=== PATIENT | male | born 1990 | race Caucasian/White ===

== ENCOUNTER 2017-07-12 07:04 | Emergency (ER) | payer SELFPAY ==
[2017-07-12 07:12] VITALS: TEMP 98.5; BMI 27.5
[2017-07-12] MEDS ORDERED: Sodium Chloride 0.9% 1,000 ML IV STA (07:32)
--- NOTE | 2017-07-12 07:38 | ED PDOC ---
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 you didn't want sexual disease testing or treatment. 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 [employer] Time/Duration: Other (2 days) Symptom Course: Improving Quality: Aching Context: Sitting Past Medical History - Provider Review Nursing Documentation Reviewed: Yes - Travel History Have you recently traveled outside [place] w/in the past 3 mons?: Yes If Yes, travel location?: [facility] - Psychiatric Hx Substance Use: No Family/Social History - Physician Review Nursing Documentation Reviewed: Yes Family/Social History: No Known Family HX Smoking Status: Light Smoker < 10 Cigarettes Daily Hx Alcohol Use: No Hx Substance Use: No Allergies/Home Meds Allergies/Adverse Reactions: Allergies No Known Allergies Allergy (Verified 07/12/17 07:24) Home Medications: Home Meds Medication Instructions Recorded Confirmed No Known Home Med 07/12/17 07/12/17 Review of Systems - Review of Systems Constitutional: Normal Eyes: Normal ENT: Normal Respiratory: Normal Cardiovascular: Normal Gastrointestinal: Abdominal Pain Genitourinary Male: Hematuria Musculoskeletal: Normal Skin: Normal Neurological: Normal Endocrine: Normal Hemo/Lymphatic: Normal Psychiatric: Normal Physical Exam Vital Signs Reviewed: Yes Vital Signs Temp Pulse Resp BP Pulse Ox 07/12/17 12:10 58 L 17 119/62 96 07/12/17 10:28 58 L 17 126/60 98 07/12/17 10:26 50 L 18 126/60 99 07/12/17 07:10 98.5 F 71 18 128/83 100 Temperature: Afebrile Blood Pressure: Hypertensive Pulse: Regular Respiratory Rate: Normal Appearance: Positive for: Well-Appearing, Non-Toxic, Comfortable Pain Distress: None Mental Status: Positive for: Alert and Oriented X 3 - Systems Exam Head: Present: Atraumatic, Normocephalic Pupils: Present: PERRL Extroacular Muscles: Present: EOMI Conjunctiva: Present: Normal Ears: Present: Normal Pharnyx: Present: Normal Nose (External): Present: Atraumatic Nose (Internal): Present: Normal Inspection Neck: Present: Normal Range of Motion Respiratory/Chest: Present: Clear to Auscultation, Good Air Exchange Cardiovascular: Present: Regular Rate and Rhythm Abdomen: No: Tenderness, Distention, Normal Bowel Sounds, Peritoneal Signs, Rebound, Guarding, McBurney's Point Tender, Rovsing's Sign Present, Hernias, Feeding Tubes, Ostomy Tubes, Mass/Organomegaly, Scars, Other Upper Extremity: Present: Normal Inspection Lower Extremity: Present: Normal Inspection Neurological: Present: GCS=15, CN II-XII Intact, Speech Normal, Motor Func Grossly Intact Skin: Present: Warm, Normal Color Psychiatric: Present: Alert, Oriented x 3, Normal Insight, Normal Concentration Medical Decision Making ED Course and Treatment: 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 you didn't want sexual disease testing or treatment. You were otherwise breathing easily, pink lips, smiling talking with your colleague, good strength/sensation, alert/oriented, walking easily, clear lungs, no abdomen tenderness, no fever temp 98.5, stable heart rate 71, stable breathing rate 18, excellent oxygen level 100% room air, elevated blood pressure 128/83 which we recommend repeat in 2-3 days primary care office to determine further treatment, you have blood tests no infection count 9.9, stable blood level hemoglobin 17/platelets 224, stable chemistry, mildly low potassium 3.5 which was supplemented, urine test no acute sign of infection, radiology no acute findings, normal appendix, intravenous fluids done in the ED with improvement and you refused pain medication and stated no pain, counselled to stop smoking and thus discharged home with colleague. 1. Recommend tylenol or motrin as directed for pain. 2. Recommend follow-up primary care 2-3 days to review symptoms, referral to urology clinic for enhancement of kidneys and cysts to ensure no cancer development and surgery clinic for lymph nodes to ensure no cancer developement. 4. If any worsening pain, fever, chills, nausea, vomiting, difficulty breathing, numbness, loss of limb function, pain with urination or any medical condition then return to the ED. 07/12/17 07:40 07/12/17 07:41 CT abdomen: Creator : Harriet Bond MD FINDINGS: LOWER THORAX: There is dependent atelectasis in the lung bases. LIVER: Normal in size and appearance. No gross lesion or ductal dilatation. GALLBLADDER AND BILE DUCTS: The gallbladder is contracted. PANCREAS: Normal in size and appearance. No gross lesion or ductal dilatation. SPLEEN: Normal in size and appearance. ADRENALS: No discrete nodule. KIDNEYS AND URETERS: The kidneys are normal in size and there is homogeneous enhancement without solid mass or hydronephrosis. There a few small subcentimeter simple cortical cysts in the kidneys. VASCULATURE: No aortic aneurysm. BOWEL: There are fluid filled normal caliber small bowel loops. There is no bowel dilatation or obstruction. There is moderate amount of stool scattered throughout the colon. APPENDIX: Normal appendix. PERITONEUM: No free fluid. No free air. Within normal limits LYMPH NODES: There are several prominent subcentimeter lymph nodes in the right lower quadrant. BLADDER: Normal in appearance. REPRODUCTIVE:The prostate gland is normal in size and appearance. BONES: No acute fracture. Within normal limits for the patient's age. OTHER FINDINGS: None. IMPRESSION: 1. No acute abdominal or pelvic abnormality. Specifically, no CT evidence for acute appendicitis. 2. Several prominent subcentimeter right lower quadrant mesenteric lymph nodes which may represent nonspecific mesenteric lymphadenitis. 07/12/17 12:21 - Lab Interpretations Lab Results: 07/12/17 07:20 07/12/17 07:20 Lab Results 07/12/17 08:53: Urine Color Yellow, Urine Appearance Clear, Urine pH 6.0, Ur Specific [place] 1.010, Urine Protein Negative, Urine Glucose (UA) Negative, Urine Ketones Negative, Urine Blood Moderate H, Urine Nitrate Negative, Urine Bilirubin Negative, Urine Urobilinogen 0.2, Ur Leukocyte Esterase Negative, Urine RBC 2 - 5, Urine WBC 0 - 2, Ur Epithelial Cells 0 - 2, Urine Bacteria Neg 07/12/17 07:20: Sodium 141, Potassium 3.5 L, Chloride 103, Carbon Dioxide 27, Anion Gap 15, BUN 14, Creatinine 1.0, Est GFR ( Amer) > 60, Est GFR (Non- Af Amer) > 60, Random Glucose 101, Calcium 9.4, Total Bilirubin 0.6, AST 35, ALT 27, Alkaline Phosphatase 57, Total Protein 7.5, Albumin 4.3, Globulin 3.2, Albumin/Globulin Ratio 1.3, Lipase 190 07/12/17 07:20: PT 12.4, INR 1.08, APTT 32.7 07/12/17 07:20: WBC 9.9, RBC 5.50, Hgb 17.3, Hct 50.0, MCV 90.9, MCH 31.5, MCHC 34.6, RDW 12.6, Plt Count 224, MPV 9.3, Gran % 66.3, Lymph % (Auto) 25.0, [place] % (Auto) 6.9 H, Eos % (Auto) 1.6, Baso % (Auto) 0.2, Gran # 6.58 H, Lymph # 2.5 , [place] # 0.7 H, Eos # 0.2, Baso # 0.02 I have reviewed the lab results: Yes - RAD Interpretation Radiology Orders: 07/12/17 08:48 ABDOMEN & PELVIS [ABD & PELVIS IV CONTRAST ONLY] [CT] Stat Investment Strategist: Radiologist - Medication Orders Current Medication Orders: Discontinued Medications Sodium Chloride (Sodium Chloride 0.9%) 1,000 mls @ 1,000 mls/hr IV .Q1H STA Stop: 07/12/17 08:31 Last Admin: 07/12/17 07:49 Dose: 1,000 mls/hr eMAR Start Stop Document 07/12/17 07:49 MR (Rec: 07/12/17 07:49 MR [id number]) Intravenous Solution Start Date 07/12/17 Start Time 07:49 End Date 07/12/17 End time 08:49 Total Infusion Time 60 Potassium Chloride (K-Dur 20 Meq Er Tab) 40 meq PO STAT STA Stop: 07/12/17 08:49 Last Admin: 07/12/17 09:20 Dose: 40 meq - Scribe Statement The provider has reviewed the documentation as recorded by the Awais Cristobal Provider Awais Attestation: All medical record entries made by the Awais were at my direction and personally dictated by me. I have reviewed the chart and agree that the record accurately reflects my personal performance of the history, physical exam, medical decision making, and the department course for this patient. I have also personally directed, reviewed, and agree with the discharge instructions and disposition. Disposition/Present on Arrival - Present on Arrival Any Indicators Present on Arrival: No History of DVT/PE: No History of Uncontrolled Diabetes: No Urinary Catheter: No History of Decub. 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 you didn't want sexual disease testing or treatment. You were otherwise breathing easily, pink lips, smiling talking with your colleague, good strength/sensation, alert/oriented, walking easily, clear lungs, no abdomen tenderness, no fever temp 98.5, stable heart rate 71, stable breathing rate 18, excellent oxygen level 100% room air, elevated blood pressure 128/83 which we recommend repeat in 2-3 days primary care office to determine further treatment, you have blood tests no infection count 9.9, stable blood level hemoglobin 17/platelets 224, stable chemistry, mildly low potassium 3.5 which was supplemented, urine test no acute sign of infection, radiology no acute findings, normal appendix, intravenous fluids done in the ED with improvement and you refused pain medication and stated no pain, counselled to stop smoking and thus discharged home with colleague. 1. Recommend tylenol or motrin as directed for pain. 2. Recommend follow-up primary care 2-3 days to review symptoms, referral to urology clinic for enhancement of kidneys and cysts to ensure no cancer development and surgery clinic for lymph nodes to ensure no cancer developement. 4. If any worsening pain, fever, chills, nausea, vomiting, difficulty breathing, numbness, loss of limb function, pain with urination or any medical condition then return to the ED. 07/12/17 07:40 Forms: [employer] (Yoruba)
[2017-07-12 07:56] LABS: BASO # 0.02 K/mm3 (0.0-2.0); BASO % 0.2 % (0.0-3.0); EOS # 0.2 (0.0-0.7); EOS % 1.6 % (1.5-5.0); GRAN # 6.58 (1.4-6.5); GRAN % 66.3 % (50.0-68.0); HEMOGLOBIN 17.3 g/dL (14.0-18.0); LYMPH # 2.5 (1.2-3.4); MEAN CELL VOLUME 90.9 fl (80.0-105.0); MEAN CORPUSCULAR HEMOGLOBIN 31.5 pg (25.0-35.0); MEAN CORPUSCULAR HGB CONC 34.6 g/dl (31.0-37.0); MEAN PLATELET VOLUME 9.3 fl (7.0-11.0); MONO # 0.7 (0.1-0.6); MONO % 6.9 % (1.0-6.0); RBC 5.5 10^6/uL (3.5-6.1); RED CELL DISTRIBUTION WIDTH 12.6 % (11.5-14.5); WHITE BLOOD COUNT 9.9 10^3/ul (4.5-11.0)
[2017-07-12 08:12] LABS: INR 1.08 (0.93-1.08); PARTIAL THROMBOPLASTIN TIME 32.7 Seconds (25.1-36.5); PROTHROMBIN TIME 12.4 SECONDS (9.4-12.5)
[2017-07-12 08:28] LABS: ALB/GLOB RATIO 1.3 (1.1-1.8); ALBUMIN 4.3 g/dL (3.0-4.8); ALT/SGPT 27 U/L (7-56); AST/SGOT 35 U/L (17-59); BLOOD UREA NITROGEN 14 mg/dL (7-21); CALCIUM 9.4 mg/dL (8.4-10.5); GFR AFRICAN-AMERICAN > 60; GFR NON-AFRICAN AMERICAN > 60; LIPASE 190 U/L (23-300)
[2017-07-12] MEDS ORDERED: Potassium Chloride 20 mEq ER Tab PO STA (08:48)
[2017-07-12 09:08] LABS: URINE BILIRUBIN NEGATIVE (NEGATIVE); URINE BLOOD MODERATE (NEGATIVE); URINE GLUCOSE (UA) NEGATIVE (NEGATIVE); URINE LEUKOCYTE ESTERASE NEGATIVE Leu/uL (NEGATIVE); URINE NITRATE NEGATIVE (NEGATIVE); URINE PROTEIN NEGATIVE mg/dL (<30 mg/dL); URINE UROBILINOGEN 0.2 E.U./dL (<1 E.U./dL)
[2017-07-12 09:19] LABS: URINE APPEARANCE CLEAR (CLEAR); URINE COLOR YELLOW (YELLOW)
[2017-07-12 09:20] LABS: URINE EPITHELIAL CELLS 0 - 2 /hpf (0-5); URINE WBC 0 - 2 /hpf (0-6)
[2017-07-12 09:21] LABS: URINE BACTERIA NEG (NEG)
[2017-07-12] MEDS ORDERED: Iohexol 350 MG/100 ML VIAL ONE (09:35)
[2017-07-12 10:29] VITALS: PULSE 58; RESP 17
--- NOTE | 2017-07-12 10:40 | CT ---
PROCEDURE: CT Abdomen and Pelvis with contrast HISTORY: RLQ pain COMPARISON: None. TECHNIQUE: CT scan of the abdomen and pelvis was performed after intravenous administration of contrast. Oral contrast was not administered. Contrast dose: 100 mL Omnipaque 350 Radiation dose: Total exam DLP = 300.25 mGy-cm. This CT exam was performed using one or more of the following dose reduction techniques: Automated exposure control, adjustment of the mA and/or kV according to patient size, and/or use of iterative reconstruction technique. FINDINGS: LOWER THORAX: There is dependent atelectasis in the lung bases. LIVER: Normal in size and appearance. No gross lesion or ductal dilatation. GALLBLADDER AND BILE DUCTS: The gallbladder is contracted. PANCREAS: Normal in size and appearance. No gross lesion or ductal dilatation. SPLEEN: Normal in size and appearance. ADRENALS: No discrete nodule. KIDNEYS AND URETERS: The kidneys are normal in size and there is homogeneous enhancement without solid mass or hydronephrosis. There a few small subcentimeter simple cortical cysts in the kidneys. VASCULATURE: No aortic aneurysm. BOWEL: There are fluid filled normal caliber small bowel loops. There is no bowel dilatation or obstruction. There is moderate amount of stool scattered throughout the colon. APPENDIX: Normal appendix. PERITONEUM: No free fluid. No free air. Within normal limits LYMPH NODES: There are several prominent subcentimeter lymph nodes in the right lower quadrant. BLADDER: Normal in appearance. REPRODUCTIVE: The prostate gland is normal in size and appearance. BONES: No acute fracture. Within normal limits for the patient's age. OTHER FINDINGS: None. IMPRESSION: 1. No acute abdominal or pelvic abnormality. Specifically, no CT evidence for acute appendicitis. 2. Several prominent subcentimeter right lower quadrant mesenteric lymph nodes which may represent nonspecific mesenteric lymphadenitis.
[2017-07-12 12:11] VITALS: BP 119/62; O2SAT 96
== END 2017-07-12 12:32 | disposition home or self-care (01) ==
LOC: ED 07:04
DX: R10.9 Unspecified abdominal pain (principal)
CPT/HCPCS: 74177; 80053; 81001; 83690; 85025; 85610; 85730; 87086; 96360; 99284; J7040; Q9967